=== PATIENT | male | born 1955 | race Caucasian/White ===

== ENCOUNTER 2017-04-01 22:35 | Emergency (ER) | payer MEDICAID ==
[~2017-04-01] VITALS: Ht 177.8 cm; Wt 100.0 kg
[~2017-04-01 22:35] MED LIST: ALBU1AER INH; ALBU6.7H INH; B-COTAB41 PO; CITA20TA4 PO; HYDR-3535 PO; LISI-357 PO; PRIL20CA PO; RIVA20 PO; ROBA500T PO; SPIRCAP INH; TAB-TAB PO; XANA1TAB6 PO; ZOLP10TA3 PO
[2017-04-01 22:45] VITALS: BP 98/57; PULSE 90; RESP 18; TEMP 97.5; O2SAT 88
[2017-04-02 04:57] VITALS: BP 128/82; PULSE 69; RESP 18; TEMP 97.5; O2SAT 94
[2017-04-02] MEDS ORDERED: CITA40TA4 PO (05:01)
[2017-04-02] MEDS ORDERED: OMEP20TA PO (05:01)
[2017-04-02] MEDS ORDERED: TEMA30CA PO (05:02)
[2017-04-02] MEDS ORDERED: LISI10TA3 PO (05:03)
[2017-04-02] MEDS ORDERED: ALPR1TAB3 PO (05:03)
[2017-04-02] MEDS ORDERED: ALBU0.63 NEB (05:04)
[2017-04-02] MEDS ORDERED: SPIRCAP INH (05:04)
[2017-04-02] MEDS ORDERED: ALBUAER3 INH (05:05)
[2017-04-02] MEDS ORDERED: PERC10TA27 PO (05:06)
[2017-04-02] MEDS ORDERED: ROBA750T PO (05:07)
[2017-04-02] MEDS ORDERED: XARE20TA PO (05:07)
[2017-04-02] MEDS ORDERED: PRAV20TA2 PO (05:08)
[2017-04-02] MEDS ORDERED: GABA300C5 PO (05:11)
[2017-04-02] MEDS ORDERED: VENTAER INH (05:33)
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
[2017-04-02] MEDS ORDERED: RESP: ALBUTEROL 2.5 MG/IPRATROPIUM 0.5 MG NEB (SCH) NEB ONE (05:45)
[2017-04-02 07:15] VITALS: BP 113/71; PULSE 70; PULSE 75; RESP 16; O2SAT 97
== END 2017-04-02 08:50 | disposition home or self-care (01) ==
LOC: PHED 22:35
DX: J44.9 Chronic obstructive pulmonary disease, unspecified (principal); G62.9 Polyneuropathy, unspecified; F17.210 Nicotine dependence, cigarettes, uncomplicated; G89.29 Other chronic pain; I10 Essential (primary) hypertension; K21.9 Gastro-esophageal reflux disease without esophagitis; M19.90 Unspecified osteoarthritis, unspecified site; Z79.01 Long term (current) use of anticoagulants; Z86.73 Personal history of transient ischemic attack (TIA), and cerebral infarction without residual deficits; Z88.0 Allergy status to penicillin
CPT/HCPCS: 94664; 99283

== ENCOUNTER → 2017-11-05 | Outpatient (CLI) | payer MEDICAID ==
[~2017-11-05] MED LIST changes: +ALBU0.63 NEB; -ALBU1AER INH; -ALBU6.7H INH; +ALBUAER3 INH; +ALPR1TAB3 PO; -B-COTAB41 PO; -CITA20TA4 PO; +CITA40TA4 PO; +FERR325T18 PO; +GABA300C5 PO; -HYDR-3535 PO; +IBUP1TAB7 PO; +KEPP750T PO; -LISI-357 PO; +LISI-519 PO; +LISI10TA3 PO; +NO ITAB PO; +OMEP20TA93 PO; +PERC10TA27 PO; +PRAV20TA2 PO; -PRIL20CA PO; +RANI150T PO; -RIVA20 PO; -ROBA500T PO; +ROBA750T PO; +SYMB160A INH; -TAB-TAB PO; +TEMA30CA PO; +VENTAER INH; -XANA1TAB6 PO; +XARE20TA PO; -ZOLP10TA3 PO
[2017-11-05 13:18] LABS: AUTOMATED NEUTROPHIL # 3.2 TH/MM3 (1.8-7.7); BASOPHIL # 0.2 TH/MM3 (0-0.2); BASOPHIL % 4.1 % (0.0-2.0); EOSINOPHIL # 0.1 TH/MM3 (0-0.4); EOSINOPHIL % 2.3 % (0.0-4.0); HEMATOCRIT 44.7 % (39.0-51.0); LYMPH % 22.8 % (9.0-44.0); LYMPHOCYTE # 1.2 TH/MM3 (1.0-4.8); MEAN CELL VOLUME 92.6 FL (80.0-100.0); MEAN CORPUSCULAR HGB CONC 33.5 % (32.0-36.0); MEAN PLATELET VOLUME 7.3 FL (7.0-11.0); MONO % 10.5 % (0.0-8.0); MONOCYTE # 0.5 TH/MM3 (0-0.9); NEUT % 60.3 % (16.0-70.0); PLATELET COUNT 291 TH/MM3 (150-450); RED BLOOD COUNT 4.83 MIL/MM3 (4.50-5.90); RED CELL DISTRIBUTION WIDTH 14.5 % (11.6-17.2); WHITE BLOOD COUNT 5.2 TH/MM3 (4.0-11.0)
--- NOTE | 2017-11-06 23:12 | EKG ---
Date Performed: 11/05/2017 Time Performed: 12:56:37 PTAGE: 62 years EKG: Sinus rhythm LOW QRS VOLTAGE IN EXTREMITY LEADS BORDERLINE ECG PREVIOUS TRACING : 09/28/2014 06.58 DOCTOR: Apollo Domínguez Interpretating Date/Time 11/06/2017 23:10:18
== END ==
LOC: PHPRE 11:45
PROVIDERS: ATTEND Orthopaedic Surgery
DX: Z01.810 Encounter for preprocedural cardiovascular examination (principal); Z01.812 Encounter for preprocedural laboratory examination; R94.31 Abnormal electrocardiogram [ECG] [EKG]
CPT/HCPCS: 36415; 85025; 93005

== ENCOUNTER → 2017-11-15 | Day surgery (SDC) | payer MEDICAID ==
[~2017-11-15] VITALS: Ht 177.8 cm; Wt 91.0 kg
[~2017-11-15] MED LIST changes: +ACETAMINOPHEN 1000 MG/100 ML 100 ML IV ONE; +BUPIVACAINE/EPINEPHRINE 0.5% PF 30 ML VIAL ONE; +CHLORHEXIDINE GLUCONATE 2 % 1 PACK (2 CLOTHS) TOPICAL PRN; +CHLORHEXIDINE GLUCONATE 4% SOLN 120 ML BTL TOPICAL SCH; +CLINDAMYCIN 900 MG/NS 100 ML IV SCH; +FAMOTIDINE 20 MG/2 ML VIAL ONE; +KETOROLAC TROMETHAMINE 30 MG/ML (IVP) VIAL ONE; +LACTATED RINGER'S 1000 ML IV PRN; -LISI10TA3 PO; +METOPROLOL TARTRATE 25 MG TAB PO PRN; +MIDAZOLAM HCL 2 MG/2 ML VIAL ONE; +MORPHINE SULFATE 4 MG/ML INJ ONE; -PERC10TA27 PO; +POVIDONE IODINE 5% (ANTISEPSIS KIT) 4 APPLICATIONS EACH NARE PRN; +SODIUM CHLORID 0.9% 500 ML IV PRN; +TRIAMCINOLONE ACETONIDE 40 MG/ML VIAL ONE; +VANCOMYCIN 1 GM/200 ML INJ 200 ML IV SCH; +VANCOMYCIN 1000 MG/NS 250 ML (for <70 kg) IV SCH; +fentaNYL CITRATE 250 MCG/5 ML AMP ONE
--- NOTE | 2017-11-15 09:53 | MP ---
cc: Gabe Norwood MD DATE OF OPERATION: 11/15/2017 DATE OF OPERATION: 11/15/2017 SURGEON: Gabe Norwood MD PREOPERATIVE DIAGNOSES: Rotator cuff tear of the left shoulder with impingement syndrome and possible bicipital tendinitis. POSTOPERATIVE DIAGNOSES: Rotator cuff tear of the left shoulder with impingement syndrome and possible bicipital tendinitis. PROCEDURE PERFORMED: Anterior decompression with partial acromioplasty and excision of coracoacromial ligament and repair of chronic rotator cuff tear. DETAILS OF PROCEDURE: The patient was placed on the operating table in the supine position. Adequate general anesthesia was administered by Dr. Harvey, the anesthesiologist. The patient was then placed in a modified beach chair position with the left shoulder padded and the left shoulder was prepped and draped in the usual sterile fashion. A timeout was called, and the patient's name, location, procedure, etc. were fully confirmed. A curved longitudinal incision was made over the superior surface, extending distally so as to explore the biceps tendon. The wound was taken down through subcutaneous tissues and bleeding points were electrocauterized. The anterior border of the acromial process was identified and did reveal a downward sloping acromial process, which was extremely thickened and impinging. The coracoacromial ligament was then excised and also found to be thickened. The underlying bursa was inflamed and was also debrided and excised exposing the underlying rotator cuff, which was even further exposed after decompression carried out with a high speed power bur. We were able to reestablish the subacromial space and relieve the impingement. Right below the area of maximum impingement was a transverse type tear through the rotator cuff at the location of the infra to supraspinatus region. The insertion of the supraspinatus was found to be intact and there was no palpable defect. The biceps tendon appeared to be gliding satisfactorily and it now appeared to be free and no longer impinging on the acromion. The rotator cuff was repaired with interrupted sutures of #2 FiberWire. The undersurface of the acromial process was further smoothed with a rasp and all debris removed thoroughly with copious irrigation and aspiration. The deltoid muscle was then reinserted with interrupted sutures of #2 FiberWire. Subcutaneous tissue was closed with a running 3-0 Vicryl and the skin edges were approximated with running 4-0 subcuticular Vicryl. The sponge count, needle counts and instrument counts were reported correct x 2. We did inject the subacromial space in the skin with 10 mL of 0.5% Marcaine with epinephrine. The patient was transferred to the recovery room in satisfactory condition with a small dressing applied and a sling and swath immobilizer. The procedure was tolerated well and without complications. MD RADHA Dove/BRIAN , 09:33 AM , 09:52 AM
[2017-11-15 11:00] VITALS: BP 120/70; PULSE 67; RESP 16; TEMP 98; O2SAT 96
== END | disposition home or self-care (01) ==
LOC: PHSDC 06:03
PROVIDERS: ATTEND Orthopaedic Surgery
DX: M75.102 Unspecified rotator cuff tear or rupture of left shoulder, not specified as traumatic (principal); M75.42 Impingement syndrome of left shoulder; I10 Essential (primary) hypertension; J44.9 Chronic obstructive pulmonary disease, unspecified
CPT/HCPCS: 01630; 23420; J0131; J1885; J2250; J2270; J3010; J3370; J7050; J7120; J3301